=== PATIENT | female | born 1960 | race Caucasian/White ===

== ENCOUNTER 2019-04-27 12:27 | Outpatient (REF) | payer BC, SELFPAY ==
[2019-04-30 11:41] LABS: CA 125 8 U/mL (0-30)
== END 2019-04-27 12:47 ==
LOC: NCHCN 12:27
PROVIDERS: PCP Family Medicine; Visit Provider Family Medicine
DX: N93.9 Abnormal uterine and vaginal bleeding, unspecified (principal)
CPT/HCPCS: 86304

== ENCOUNTER 2020-07-25 19:56 | Outpatient (REF) | payer BC, SELFPAY ==
[2020-07-28 21:08] LABS: COVID-19 RT-PCR UVMMC Result Negative (Negative)
== END 2020-07-25 20:16 ==
LOC: NCHCN 19:56
PROVIDERS: PCP Family Medicine; Visit Provider Family Medicine
DX: Z20.828 Contact with and (suspected) exposure to other viral communicable diseases (principal)
CPT/HCPCS: U0003

== ENCOUNTER 2020-08-05 18:55 | Outpatient (REF) | payer BC, SELFPAY ==
[2020-08-07 16:53] LABS: COVID-19 RT-PCR UVMMC Result Positive (Negative)
== END 2020-08-05 19:15 ==
LOC: NCHCN 18:55
PROVIDERS: PCP Family Medicine; Visit Provider Family Medicine
DX: Z20.828 Contact with and (suspected) exposure to other viral communicable diseases (principal); J06.9 Acute upper respiratory infection, unspecified
CPT/HCPCS: U0003

== ENCOUNTER 2021-10-13 13:14 | Outpatient (REF) | payer BC, SELFPAY ==
--- NOTE | 2021-10-13 11:20 | PAPFT_PTH ---
PATIENT: Jenny Iniguez LOC: [facility] U#:[id number] AGE/SX: 61/F ROOM: RE10/13/[address]: Shirley Dunaway : 1960 BED: DIS: 10/13/2021 SPEC #: [id number] RECD: 10/14/21 13:05 STATUS: CHET REOneil #: [id number] ABBY: 10/13/21 11:[address]: Shirley Dunaway DEPT: [facility] Cytology RECD BY: Iva Voss Tissues: 1 - CX/ENDOCX FOR PAP SMEARS Procedures: PAP THIN PREP/[facility] Screening HPV DNA PROBE Comments: [id number]
== END 2021-10-13 13:15 | disposition home or self-care (01) ==
LOC: NCHCN 13:14
PROVIDERS: PCP Family Medicine; Visit Provider Family Medicine
DX: Z12.4 Encounter for screening for malignant neoplasm of cervix (principal); Z11.51 Encounter for screening for human papillomavirus (HPV)
CPT/HCPCS: 88142; 87624